=== PATIENT | male | born 1950 | race Caucasian/White ===

== ENCOUNTER → 2016-12-10 | Outpatient (CLI) | payer OTHER, BC ==
[~2016-12-10] MED LIST: ALBU18002; ASPI81TA28 PO; CLB/200 PO; COEN75CA PO; LISI-461 PO; LRS10 PO; MULT-506 PO; OXYC-57 PO; QVRINH80; TRMO2580 TOP; VNTHFA/IN INH; ZOLP5TAB6 PO
--- NOTE | 2016-12-10 15:07 | DIAGNOSTIC IMAGING REPORT ---
THORACIC SPINE 3 VIEWS ROUTINE HISTORY: Pain CHRONIC THORACIC BACK PAIN COMPARISON: None. FINDINGS: There is no fracture. No subluxation. Mild degenerative disc change throughout. Mild scoliosis. IMPRESSION: Mild degenerative change. Mild scoliosis. No acute process. The above report was generated using voice recognition software. It may contain grammatical, syntax or spelling errors. Electronically signed by: Des Ryan M.D. 12/10/2016 3:06 PM Dictated Date/Time: 12/10/2016 3:06 PM
== END | disposition home or self-care (01) ==
LOC: C.RADBC 14:48
PROVIDERS: ATTEND Physician Assistant
DX: M54.6 Pain in thoracic spine (principal); G89.29 Other chronic pain